=== PATIENT | female | born 1980 | race Caucasian/White ===

== ENCOUNTER 2024-10-08 17:37 | Emergency (ER) | payer MEDICAID, SELFPAY ==
[2024-10-08 17:41] VITALS: BP 141/87; PULSE 94; TEMP 36.7; O2SAT 96; BMI 25.1
--- NOTE | 2024-10-08 17:50 | ECG_ITS ---
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
[2024-10-08 18:35] VITALS: PULSE 83
[2024-10-08 18:51] LABS: Basophils Percent Auto 0.4 % (0.2-2.0); Eosinophils Percent Auto 0.2 % (0.9-7.0); Hematocrit 41.1 % (36.0-48.0); Hemoglobin 14.9 g/dL (12.0-16.0); Lymphocytes Absolute Auto 1.2 10^3/uL (1.2-3.8); Lymphocytes Percent Auto 22.4 % (20.5-60.0); Mean Corpuscular HGB Conc 36.3 g/dL (29.9-35.2); Mean Corpuscular Hemoglobin 31.7 pg (26.7-34.0); Mean Corpuscular Volume 87.4 fL (81.0-99.0); Mean Platelet Volume 9.6 fL (9.5-13.5); Monocytes Absolute Auto 0.3 10^3/uL (0.3-0.8); Monocytes Percent Auto 5.7 % (1.7-12.0); Neutrophils Absolute Auto 3.8 10^3/uL (1.4-6.5); Neutrophils Percent Auto 71.3 % (43.0-75.0); Platelet Count 329 10^3/uL (150-450); Red Cell Distribution Width 11.9 % (11.0-15.0); White Blood Count 5.3 10^3/uL (4.0-11.0)
--- NOTE | 2024-10-08 19:01 | ED_ITS ---
Documented by User: Anca Ozunaey 10/08/24 20:13 HPI - Alcohol General Chief Complaint: Alcohol Time Seen by Provider: 10/08/24 17:48 Source: patient Mode of arrival: walk-in History of Present Illness HPI narrative: [age]-year-old female presents here with chief complaint of needing medical clearance. She tried to check herself into a detox center today and was intoxicated sent to the emergency room for alcohol clearance. Patient admits to having a 7-day drinking binge. She states she was vomiting yesterday. Patient does not appear toxic. She is very loud and obnoxious at this time. She states she probably had 2 or 3 shots this morning along with 2 small bottles of fireball. Patient otherwise nontoxic-appearing Related Data Allergies Allergy/AdvReac Type Severity Reaction Status Date / Time No Known Drug Allergies Allergy Verified 10/08/24 17:46 Review of Systems ROS Narrative All Systems are negative except as noted/marked.All systems reviewed and otherwise negative Exam Narrative Exam Narrative: Nurses note and vital signs reviewed and patient is not hypoxic. General: The patient appears well and in no apparent distress. Patient is resting comfortably on cart. Skin: Warm, dry, no pallor noted. There is no rash noted. Head: Normocephalic, atraumatic Eye: Normal conjunctiva, no drainage, EOMI. PERRL Ears, Nose, Mouth, and Throat: oral mucosa is moist. Nares patent. Mouth without vesicles. Ear canals patent. Tm's without Erythema Cardiovascular: Regular Rate and Rhythm Respiratory: Patient is in no distress, no accessory muscle use, lungs are clear to auscultation, no wheezing, rales or rhonchi Back: non-tender, no CVA tenderness bilaterally to percussion. GI: Normal bowel sounds, no tenderness to palpation, no masses appreciated. No rebound, guarding, or rigidity noted. Musculoskeletal: The patient has no evidence of calf tenderness, no pitting edema, symmetrical pulses noted bilaterally Neurological: A&O x4, normal speech Psychiatric: intoxicated Constitutional Vital Signs, click to edit/add: Last Vital Signs Temp 98.0 F 10/08/24 17:41 Pulse 94 H 10/08/24 17:41 Resp 18 10/08/24 17:41 BP 141/87 10/08/24 17:41 Pulse Ox 96 10/08/24 17:41 O2 Del Method Room Air 10/08/24 17:41 Course Vital Signs Vital signs: Vital Signs Temperature 98.0 F 10/08/24 17:41 Pulse Rate 94 H 10/08/24 17:41 Respiratory Rate 18 10/08/24 17:41 Blood Pressure 141/87 10/08/24 17:41 Pulse Oximetry 96 10/08/24 17:41 Oxygen Delivery Method Room Air 10/08/24 17:41 Temperature 98.0 F 10/08/24 17:41 Pulse Rate 94 H 10/08/24 17:41 Respiratory Rate 18 10/08/24 17:41 Blood Pressure 141/87 10/08/24 17:41 Pulse Oximetry 96 10/08/24 17:41 Oxygen Delivery Method Room Air 10/08/24 17:41 MDM - Alcohol MDM Narrative Medical decision making narrative: Here with a chief complaint of alcohol intoxication. Urinalysis and blood work reviewed. Patient has currently intoxicated with etoh of 326..patient will be released [facility]. Patient is medically cleared. Have a chronic history of alcoholism where she goes through sober and binges. She states she had been on a 7-day binge. Differential Diagnosis Differential diagnosis: Likely alcohol intoxication Medical Records Attestation: I reviewed the patient's medical records. Lab Data Attestation: I reviewed the patient's lab results. Labs: Lab Results 10/08/24 10/08/24 Range/Units 18:40 19:48 WBC 5.3 (4.0-11.0) 10^3/uL RBC 4.70 (4.20-5.40) 10^6/uL Hgb 14.9 (12.0-16.0) g/dL Hct 41.1 (36.0-48.0) % MCV 87.4 (81.0-99.0) fL MCH 31.7 (26.7-34.0) pg MCHC 36.3 H (29.9-35.2) g/dL RDW 11.9 (11.0-15.0) % Plt Count 329 (150-450) 10^3/uL MPV 9.6 (9.5-13.5) fL Neut % (Auto) 71.3 (43.0-75.0) % Lymph % (Auto) 22.4 (20.5-60.0) % Worth % (Auto) 5.7 (1.7-12.0) % Eos % (Auto) 0.2 L (0.9-7.0) % Baso % (Auto) 0.4 (0.2-2.0) % Neut # (Auto) 3.8 (1.4-6.5) 10^3/uL Lymph # (Auto) 1.2 (1.2-3.8) 10^3/uL Worth # (Auto) 0.3 (0.3-0.8) 10^3/uL Eos # (Auto) 0.0 (0.0-0.7) 10^3/uL Baso # (Auto) 0.0 (0.0-0.1) 10^3/uL Abs Immat Gran (auto) 0.00 (0.00-0.03) 10^3/uL Imm/Tot Granulo (auto) 0.0 (0.0-0.5) % PT 11.4 (9.0-11.6) sec INR 1.08 Sodium 138 (136-145) mmol/L Potassium 3.3 L (3.5-5.1) mmol/L Chloride 98 (98-107) mmol/L Carbon Dioxide 26.4 (21.0-32.0) mmol/L Anion Gap 16.9 BUN 15.0 (7.0-18.0) mg/dL Creatinine 0.89 (0.55-1.02) mg/dL Est GFR ( Amer) >60 (>=60 mL/min/1.73m^2) Est GFR (Non-Af Amer) >60 (>=60 mL/min/1.73m^2) BUN/Creatinine Ratio 16.9 Glucose 97 (74-106) mg/dL Calcium 8.2 L (8.5-10.1) mg/dL Phosphorus 2.6 (2.6-4.7) mg/dL Magnesium 2.3 (1.8-2.4) mg/dL Total Bilirubin 0.8 (0.2-1.0) mg/dL AST 25 (15-37) U/L ALT 45 (14-59) U/L Alkaline Phosphatase 69 (46-116) U/L Total Protein 7.9 (6.4-8.2) g/dL Albumin 4.3 (3.4-5.0) g/dL Globulin 3.6 g/dL Albumin/Globulin Ratio 1.2 Lipase 16.0 (16.0-77.0) U/L Serum HCG, Qual Negative (NEGATIVE) Urine Color Lt. yellow (YELLOW) Urine Clarity Clear (CLEAR) Urine pH 6.0 (5.0-9.0) Ur Specific [place] <=1.005 A (1.005-1.025) Urine Protein Negative (NEG/TRACE) mg/dL Urine Glucose (UA) Negative (NEGATIVE) mg/dL Urine Ketones Negative (NEGATIVE) mg/dL Urine Occult Blood Trace-l (NEGATIVE) Urine Nitrite Negative (NEGATIVE) Urine Bilirubin Negative (NEGATIVE) Urine Urobilinogen 0.2 (0.2-1.0) EU/dL Ur Leukocyte Esterase Negative (NEGATIVE) Urine RBC None seen (0-2) #/HPF Urine WBC 0-2 A (NONE SEEN) #/HPF Ur Squamous Epith Cells Few A (NONE/RARE) #/LPF Urine Crystals None seen (None Seen) #/HPF Urine Bacteria None seen (NONE SEEN) #/HPF Urine Casts None seen (NONE SEEN) #/LPF Urine Mucus None seen (NONE SEEN) Urine Opiates Screen Negative (NEGATIVE) Ur Buprenorphine Scrn Negative (NEGATIVE) Ur Oxycodone Screen Negative (NEGATIVE) Urine Methadone Screen Negative (NEGATIVE) Ur Barbiturates Screen Negative (NEGATIVE) U Tricyclic Antidepress Negative (NEGATIVE) Ur Phencyclidine Scrn Negative (NEGATIVE) Ur Amphetamines Screen Negative (NEGATIVE) U Methamphetamines Scrn Negative (NEGATIVE) U Benzodiazepines Scrn Negative (NEGATIVE) Urine Cocaine Screen Negative (NEGATIVE) U Cannabinoids Screen Negative (NEGATIVE) Ethanol Quant 326 mg/dL ECG Data Interpretation: 1835 with a rate of 83 bpm NH interval 154 ms QRS duration [address] elevation or depression, no stemi Discharge Plan Discharge Chief Complaint: Alcohol Clinical Impression: Alcoholic intoxication Patient Disposition: Home, Self-Care Time of Disposition Decision: 20:11 Condition: Good Print Language: Mexican Instructions: Abuse of Alcohol (ED) Referrals: Araceli Longoria NP [Primary Care Provider] - 1 week Documented by User: Puneet Robbins MD 10/08/24 20:18 HPI - Alcohol General Chief Complaint: Alcohol Time Seen by Provider: 10/08/24 17:48 Related Data Allergies Allergy/AdvReac Type Severity Reaction Status Date / Time No Known Drug Allergies Allergy Verified 10/08/24 17:46 Exam Constitutional Vital Signs, click to edit/add: Last Vital Signs Temp 98.0 F 10/08/24 17:41 Pulse 94 H 10/08/24 17:41 Resp 18 10/08/24 17:41 BP 141/87 10/08/24 17:41 Pulse Ox 96 10/08/24 17:41 O2 Del Method Room Air 10/08/24 17:41 Course Vital Signs Vital signs: Vital Signs Temperature 98.0 F 10/08/24 17:41 Pulse Rate 94 H 10/08/24 17:41 Respiratory Rate 18 10/08/24 17:41 Blood Pressure 141/87 10/08/24 17:41 Pulse Oximetry 96 10/08/24 17:41 Oxygen Delivery Method Room Air 10/08/24 17:41 Temperature 98.0 F 10/08/24 17:41 Pulse Rate 94 H 10/08/24 17:41 Respiratory Rate 18 10/08/24 17:41 Blood Pressure 141/87 10/08/24 17:41 Pulse Oximetry 96 10/08/24 17:41 Oxygen Delivery Method Room Air 10/08/24 17:41 MDM - Alcohol MDM Narrative Medical decision making narrative: Here with a chief complaint of alcohol intoxication. Urinalysis and blood work reviewed. Patient has currently intoxicated with etoh of 326..patient will be released [facility]. Patient is medically cleared. Have a chronic history of alcoholism where she goes through sober and binges. She states she had been on a 7-day binge. I, Dr Robbins, have reviewed the above progress note and course of action in the ER; agree with the above. I have personally seen and evaluated this patient, gone over history and physical, and discussed disposition and treatment plan with the patient. Multiple bedside visits have been made by nursing staff, security, and Anca Lala physician investment sales assistant, and myself Dr. Robbins. Patient finally was allowing IV lab work and urine testing to be done. 1830 I have spoken to Chacorta nurse practitioner for [facility] who is excepting admissions. He stated there is no certain number of alcohol level that patient has to have before admission. Patient is speaking, patient is coherent, patient may be discharged from the emergency room and taken directly to [facility] for alcohol detox and help with rehab and treatment. Chacorta stated that patient has been there several times previously to [facility] Critical care time 32 minutes exclusive from separate billable procedures that were performed. The following was considered in the determination of critical care but not limited to the level of medical decision making, intensive cardiac and/or respiratory monitoring, frequent vital sign monitoring, evaluation of laboratory studies, evaluation of radiographic studies, oxygen monitoring, and constant monitoring and speaking to family at bedside Lab Data Labs: Lab Results 10/08/24 10/08/24 Range/Units 18:40 19:48 WBC 5.3 (4.0-11.0) 10^3/uL RBC 4.70 (4.20-5.40) 10^6/uL Hgb 14.9 (12.0-16.0) g/dL Hct 41.1 (36.0-48.0) % MCV 87.4 (81.0-99.0) fL MCH 31.7 (26.7-34.0) pg MCHC 36.3 H (29.9-35.2) g/dL RDW 11.9 (11.0-15.0) % Plt Count 329 (150-450) 10^3/uL MPV 9.6 (9.5-13.5) fL Neut % (Auto) 71.3 (43.0-75.0) % Lymph % (Auto) 22.4 (20.5-60.0) % Worth % (Auto) 5.7 (1.7-12.0) % Eos % (Auto) 0.2 L (0.9-7.0) % Baso % (Auto) 0.4 (0.2-2.0) % Neut # (Auto) 3.8 (1.4-6.5) 10^3/uL Lymph # (Auto) 1.2 (1.2-3.8) 10^3/uL Worth # (Auto) 0.3 (0.3-0.8) 10^3/uL Eos # (Auto) 0.0 (0.0-0.7) 10^3/uL Baso # (Auto) 0.0 (0.0-0.1) 10^3/uL Abs Immat Gran (auto) 0.00 (0.00-0.03) 10^3/uL Imm/Tot Granulo (auto) 0.0 (0.0-0.5) % PT 11.4 (9.0-11.6) sec INR 1.08 Sodium 138 (136-145) mmol/L Potassium 3.3 L (3.5-5.1) mmol/L Chloride 98 (98-107) mmol/L Carbon Dioxide 26.4 (21.0-32.0) mmol/L Anion Gap 16.9 BUN 15.0 (7.0-18.0) mg/dL Creatinine 0.89 (0.55-1.02) mg/dL Est GFR ( Amer) >60 (>=60 mL/min/1.73m^2) Est GFR (Non-Af Amer) >60 (>=60 mL/min/1.73m^2) BUN/Creatinine Ratio 16.9 Glucose 97 (74-106) mg/dL Calcium 8.2 L (8.5-10.1) mg/dL Phosphorus 2.6 (2.6-4.7) mg/dL Magnesium 2.3 (1.8-2.4) mg/dL Total Bilirubin 0.8 (0.2-1.0) mg/dL AST 25 (15-37) U/L ALT 45 (14-59) U/L Alkaline Phosphatase 69 (46-116) U/L Total Protein 7.9 (6.4-8.2) g/dL Albumin 4.3 (3.4-5.0) g/dL Globulin 3.6 g/dL Albumin/Globulin Ratio 1.2 Lipase 16.0 (16.0-77.0) U/L Serum HCG, Qual Negative (NEGATIVE) Urine Color Lt. yellow (YELLOW) Urine Clarity Clear (CLEAR) Urine pH 6.0 (5.0-9.0) Ur Specific [place] <=1.005 A (1.005-1.025) Urine Protein Negative (NEG/TRACE) mg/dL Urine Glucose (UA) Negative (NEGATIVE) mg/dL Urine Ketones Negative (NEGATIVE) mg/dL Urine Occult Blood Trace-l (NEGATIVE) Urine Nitrite Negative (NEGATIVE) Urine Bilirubin Negative (NEGATIVE) Urine Urobilinogen 0.2 (0.2-1.0) EU/dL Ur Leukocyte Esterase Negative (NEGATIVE) Urine RBC None seen (0-2) #/HPF Urine WBC 0-2 A (NONE SEEN) #/HPF Ur Squamous Epith Cells Few A (NONE/RARE) #/LPF Urine Crystals None seen (None Seen) #/HPF Urine Bacteria None seen (NONE SEEN) #/HPF Urine Casts None seen (NONE SEEN) #/LPF Urine Mucus None seen (NONE SEEN) Urine Opiates Screen Negative (NEGATIVE) Ur Buprenorphine Scrn Negative (NEGATIVE) Ur Oxycodone Screen Negative (NEGATIVE) Urine Methadone Screen Negative (NEGATIVE) Ur Barbiturates Screen Negative (NEGATIVE) U Tricyclic Antidepress Negative (NEGATIVE) Ur Phencyclidine Scrn Negative (NEGATIVE) Ur Amphetamines Screen Negative (NEGATIVE) U Methamphetamines Scrn Negative (NEGATIVE) U Benzodiazepines Scrn Negative (NEGATIVE) Urine Cocaine Screen Negative (NEGATIVE) U Cannabinoids Screen Negative (NEGATIVE) Ethanol Quant 326 mg/dL Discharge Plan Discharge Chief Complaint: Alcohol Clinical Impression: Alcoholic intoxication Patient Disposition: Home, Self-Care Time of Disposition Decision: 20:11 Condition: Good Print Language: Mexican Instructions: Abuse of Alcohol (ED) Referrals: Araceli Longoria NP [Primary Care Provider] - 1 week
[2024-10-08 19:08] LABS: Alanine Aminotransferase 45 U/L (14-59); Albumin Globulin Ratio 1.2; Albumin Level 4.3 g/dL (3.4-5.0); Alkaline Phosphatase 69 U/L (46-116); Anion Gap 16.9; Aspartate Amino Transferase 25 U/L (15-37); BUN Creatinine Ratio 16.9; Bilirubin Total 0.8 mg/dL (0.2-1.0); Calcium 8.2 mg/dL (8.5-10.1); Carbon Dioxide 26.4 mmol/L (21.0-32.0); Chloride 98 mmol/L (98-107); Estimated GFR (African America >60 (>=60 mL/min/1.73m^2); Estimated GFR (Non-African Ame >60 (>=60 mL/min/1.73m^2); Ethanol 326 mg/dL; Globulin 3.6 g/dL; Glucose 97 mg/dL (74-106); Magnesium 2.3 mg/dL (1.8-2.4); Phosphorus 2.6 mg/dL (2.6-4.7); Potassium 3.3 mmol/L (3.5-5.1); Sodium 138 mmol/L (136-145); Total Protein 7.9 g/dL (6.4-8.2)
[2024-10-08] MEDS: 0.9 % SODIUM CHLORIDE 1,000 ML 100 ML IV (19:09)
[2024-10-08 19:12] LABS: INR 1.08; Prothrombin Time 11.4 sec (9.0-11.6)
[2024-10-08 19:59] LABS: Bilirubin Urine NEGATIVE (NEGATIVE); Blood Urine TRACE-L (NEGATIVE); Clarity Urine CLEAR (CLEAR); Color Urine LT. YELLOW (YELLOW); Glucose Urine UA NEGATIVE (NEGATIVE); Ketones Urine NEGATIVE (NEGATIVE); Leukocyte Esterase Urine NEGATIVE (NEGATIVE); Nitrite Urine NEGATIVE (NEGATIVE); Protein Urine NEGATIVE (NEG/TRACE); Specific Gravity Urine <=1.005 (1.005-1.025); Urobilinogen Urine 0.2 EU/dL (0.2-1.0)
[2024-10-08 19:59] LABS: HCG Qualitative NEGATIVE (NEGATIVE); Internal Control Within Normal Limits
[2024-10-08 20:08] LABS: Amphetamine Screen Urine NEGATIVE (NEGATIVE); Bacteria Urine NONE SEEN #/HPF (NONE SEEN); Barbiturates Screen Urine NEGATIVE (NEGATIVE); Benzodiazepines Screen Urine NEGATIVE (NEGATIVE); Buprenorphine Screen Urine NEGATIVE (NEGATIVE); Cannabinoid Screen Urine NEGATIVE (NEGATIVE); Cast Seen? NONE SEEN #/LPF (NONE SEEN); Cocaine Screen Urine NEGATIVE (NEGATIVE); Crystals Seen? None Seen #/HPF (None Seen); Methadone Screen Urine NEGATIVE (NEGATIVE); Methamphetamines Screen Urine NEGATIVE (NEGATIVE); Mucus Urine NONE SEEN (NONE SEEN); Opiate Screen Urine NEGATIVE (NEGATIVE); Oxycodone Screen Urine NEGATIVE (NEGATIVE); Phencyclidine Screen Urine NEGATIVE (NEGATIVE); RBC Urine NONE SEEN #/HPF (0-2); Squamous Epithelial Cell Urine FEW #/LPF (NONE/RARE); Tricyclic Antidepressant Urine NEGATIVE (NEGATIVE); WBC Urine 0-2 #/HPF (NONE SEEN)
== END 2024-10-08 21:03 | disposition home or self-care (01) ==
PROVIDERS: Physician Assistant; Emergency Provider Emergency Medicine; PCP Nurse Practitioner Family
DX: F10.129 Alcohol abuse with intoxication, unspecified (principal); Y90.8 Blood alcohol level of 240 mg/100 ml or more
CPT/HCPCS: 36415; 80053; 80307; 80320; 81001; 83690; 83735; 84100; 84703; 85025; 85610; 93005; 96360; 99284